=== PATIENT | female | born 1960 | race Caucasian/White ===

== ENCOUNTER 2017-05-02 10:40 | Inpatient (IN) | payer BC ==
[~2017-05-02 10:40] MED LIST: Lidocaine 1%/Sod Bicarbonate in NS 8.4% 1 ML Syringe PRN; Sodium Chloride 0.9% 10 ML Syringe FLUSH PRN
[2017-05-02] MEDS: Lactated Ringers 1,000 ML IV SCH ×2 (11:26→12:45)
[2017-05-02] MEDS ORDERED: Propofol 200 MG/20 ML SDV ONE ×2 (11:53→16:48)
[2017-05-02] MEDS ORDERED: Morphine PF 10 MG/10 ML SDV ONE (12:00)
[2017-05-02] MEDS ORDERED: Midazolam 1 MG/ML 2 ML SDV ONE (12:00)
[2017-05-02] MEDS ORDERED: Lidocaine 1% 4 ML ONE (12:02)
[2017-05-02] MEDS ORDERED: ceFAZolin 1 GM Vial ONE (12:58)
--- NOTE | 2017-05-02 13:09 | PCM.PREANE ---
Preanesthetic Assessment - Anesthesia/Transfusion/Family Hx Anesthesia History: Prior Anesthesia Without Reaction Family History of Anesthesia Reaction: No Transfusion History: No Prior Transfusion(s) - Review of Systems General: No Symptoms Pulmonary: No Symptoms Cardiovascular: Other (HTN- controlled with medications ) Gastrointestinal: No Symptoms Neurological: No Symptoms Other: Reports: Depression - Physical Assessment NPO Status Date: 05/01/17 NPO Status Time: 22:00 O2 Sat by Pulse Oximetry: 96 Respiratory Rate: 16 Vital Signs: Last Vital Signs Temp 36.0 C 05/02/17 10:50 Pulse 67 05/02/17 10:50 Resp 16 05/02/17 10:50 BP 129/80 05/02/17 10:50 Pulse Ox 96 05/02/17 10:50 Height: 1.63 m Weight: 86.183 kg ASA Class: 2 Mental Status: Alert & Oriented x3 Airway Class: Mallampati = 2 Dentition: Reports: Normal Dentition Thyro-Mental Finger Breadths: 3 Mouth Opening Finger Breadths: 3 ROM/Head Extension: Full Lungs: Clear to Auscultation, Normal Respiratory Effort Cardiovascular: Regular Rate, Regular Rhythm - Lab Values: Laboratory Last Values MRSA (PCR) Negative 04/20/17 12:21 Blood Type A POSITIVE 05/02/17 11:25 Gel Antibody Screen Negative 05/02/17 11:25 - Allergies Allergies/Adverse Reactions: Allergies Allergy/AdvReac Type Severity Reaction Status Date / Time rofecoxib [From Vioxx] Allergy Itching Verified 05/02/17 12:13 seasonal Allergy Cough Uncoded 05/02/17 12:13 - Blood Blood Available: No Product(s) Available: None - Anesthesia Plan Pre-Op Medication Ordered: None Beta Fiona: Metoprolol Med Last Dose Date: 05/02/17 Med Last Dose Time: 07:00 - Acknowledgements Anesthesia Type Planned: Spinal (with duramorph) Pt an Appropriate Candidate for the Planned Anesthesia: Yes Alternatives and Risks of Anesthesia Discussed w Pt/Guardian: Yes Pt/Guardian Understands and Agrees with Anesthesia Plan: Yes PreAnesthesia Questionnaire - Past Health History Medical/Surgical History: Denies Medical/Surgical History HEENT History: Reports: Allergic Rhinitis, Impaired Vision Other HEENT History: wears glasses Cardiovascular History: Reports: Hypertension Respiratory History: Reports: None Genitourinary History: Reports: None Other OB/BYN History: hysterectomy Musculoskeletal History: Reports: Arthritis, Fibromyalgia Neurological History: Reports: None Psychiatric History: Reports: Depression, Other (See Below) Other Psychiatric History: insomnia Endocrine/Metabolic History: Reports: None Hematologic History: Reports: None Immunologic History: Reports: None Oncologic (Cancer) History: Reports: None Dermatologic History: Reports: Other (See Below) Other Dermatologic History: acne - Past Surgical History Respiratory Surgical History: Reports: None GI Surgical History: Reports: Appendectomy, Cholecystectomy Female Surgical History: Reports: Hysterectomy, Oophorectomy Endocrine Surgical History: Reports: None Neurological Surgical History: Reports: None Musculoskeletal Surgical History: Reports: Knee Replacement Other Musculoskeletal Surgeries/Procedures:: bilateral knee replacements - SUBSTANCE USE Smoking Status *Q: Unknown Ever Smoked Tobacco Use Within Last Twelve Months: No Second Hand Smoke Exposure: No Days Per Week of Alcohol Use: 0 Recreational Drug Use History: No - HOME MEDS Home Medications: Home Meds Gabapentin [Neurontin] 800 mg PO TID PRN 02/01/15 [History] traMADol [Ultram] 50 mg PO Q6H PRN 02/01/15 [History] Fluticasone Propionate [Flonase] 1 spray NASBOTH Q8HR PRN 06/27/15 [History] Metoprolol Succinate [Toprol XL] 25 mg PO DAILY 06/27/15 [History] Clindamycin Phos/Benzoyl Perox [Clinda-Benzoyl Perox 1-5% Pump] 1 applic TOP BID PRN 04/29/17 [History] Eszopiclone [Lunesta] 3 mg PO BEDTIME 04/29/17 [History] Venlafaxine HCl [Venlafaxine ER] 75 mg PO BEDTIME 04/29/17 [History] Venlafaxine HCl [Venlafaxine ER] 150 mg PO BEDTIME 04/29/17 [History] - CURRENT (IN HOUSE) MEDS Current Meds: Current Medications Lactated Ringer's (Ringers, Lactated) 1,000 mls @ 125 mls/hr IV ASDIRECTED ERINN Stop: 05/02/17 23:00 Last Admin: 05/02/17 12:45 Dose: 125 mls/hr Lidocaine/Sodium Bicarbonate (Buffered Lidocaine 1% In Ns 8.4%) 0.25 ml .XX ONETIME PRN PRN Reason: Prior to IV Start Stop: 05/02/17 18:00 Last Admin: 05/02/17 11:26 Dose: 0.25 ml Sodium Chloride (Saline Flush) 10 ml FLUSH ASDIRECTED PRN PRN Reason: Keep Vein Open Stop: 05/02/17 18:00 Discontinued Medications Acetaminophen (Ofirmev) 100 mls @ 400 mls/hr IV ONETIME ONE Stop: 05/02/17 12:44 Lidocaine HCl (Xylocaine-Mpf 1%) Confirm Administered Dose 4 mls @ as directed .ROUTE .STK-MED ONE Stop: 05/02/17 12:03 Midazolam HCl (Versed 1 Mg/Ml) Confirm Administered Dose 2 mg .ROUTE .STK-MED ONE Stop: 05/02/17 12:01 Morphine Sulfate (Duramorph Pf) Confirm Administered Dose 10 mg .ROUTE .STK-MED ONE Stop: 05/02/17 12:01 Propofol (Diprivan 20 Ml) Confirm Administered Dose 600 mg .ROUTE .STK-MED ONE Stop: 05/02/17 11:54
[2017-05-02] MEDS ORDERED: fentaNYL 100 MCG/2 ML SDV ONE (13:56)
[2017-05-02] MEDS ORDERED: Ketamine 500 mg/10 ML MDV ONE (14:03)
[2017-05-02] MEDS: Bupivacaine 0.25% 30 ML SDV ONE ×2 (15:34→16:45)
[2017-05-02] MEDS: ceFAZolin 1 GM Vial ONE ×2 (15:34→16:36)
[2017-05-02] MEDS: Iodine/Sodium Iodide 2% Tincture 30 ML Bottle ONE ×2 (15:35→16:32)
[2017-05-02] MEDS: Morphine 8 MG, EPINEPHrine 0.3 MG, Cefuroxime 750 MG, Ketorolac 30 MG, Sodium Chloride ... ONE ×10 (15:36→16:46)
[2017-05-02] MEDS ORDERED: Ondansetron 4 MG/2 ML SDV ONE (15:49)
[2017-05-02] MEDS ORDERED: Lactated Ringers 1,000 ML ONE (16:07)
[2017-05-02] MEDS ORDERED: Morphine 2 MG/ML Syringe IVPUSH PRN (16:33)
[2017-05-02] MEDS ORDERED: Bisacodyl 5 MG Tab PO PRN (16:33)
[2017-05-02] MEDS ORDERED: Magnesium Hydroxide 400 MG/5 ML Susp 30 ML Cup PO PRN (16:33)
[2017-05-02] MEDS ORDERED: Ondansetron 4 MG/2 ML SDV IVPUSH PRN (16:33)
[2017-05-02] MEDS ORDERED: Naloxone 0.4 MG/ML SDV IVPUSH PRN (16:33)
[2017-05-02] MEDS ORDERED: diphenhydrAMINE 50 MG/ML SDV IVPUSH PRN (16:33)
[2017-05-02] MEDS ORDERED: Sennosides 8.6 MG Tab PO PRN (16:33)
[2017-05-02] MEDS ORDERED: Docusate Sodium 100 MG Cap PO PRN (16:33)
--- NOTE | 2017-05-02 17:20 | PCM.POSTAN ---
POST ANESTHESIA ASSESSMENT - MENTAL STATUS Mental Status: Alert, Oriented - VITAL SIGNS Pulse Rate: 64 SaO2: 99 Resp Rate: 14 Blood Pressure: 99/57 Temperature: 36.0 C - RESPIRATORY Respiratory Status: Respiratory Rate WNL, Airway Patent, O2 Saturation Stable, Supplemental Oxygen - CARDIOVASCULAR CV Status: Pulse Rate WNL, Blood Pressure Stable - GASTROINTESTINAL GI Status: No Symptoms - PAIN Pain Score: 0 - POST OP HYDRATION Hydration Status: Adequate & Stable
[2017-05-02] MEDS: Acetaminophen/oxyCODONE 325-5 MG Tab PO PRN ×2 (17:55→20:06)
--- NOTE | 2017-05-02 19:25 | CR ---
Pelvis and left hip: AP view of the pelvis was obtained as well as lateral view of the left hip. Comparison: No previous pelvis or left hip exam. Left hip prosthesis is seen. Components are aligned. Underlying bony structures appear intact. Soft tissue air is noted from the surgical procedure. Impression: 1. Recently placed left hip prosthesis. Nothing acute is identified. Diagnostic code #2
--- NOTE | 2017-05-02 19:55 | PCM.CONS ---
H&P History of Present Illness - General Date of Service: 05/02/17 Admit Problem/Dx: Admission Diagnosis/Problem Admission Diagnosis/Problem Arthritis of hip Source of Information: Patient, Family, Old Records, Provider, RN Notes Reviewed History Limitations: Reports: Physical Impairment - History of Present Illness Initial Comments - Free Text/Narative: This is a 56-year-old, white female, with past medical history of HTN, HLD, Hypothyroidism, AR, Hyperhydrosis, OA/DJD, Fatigue, Myalgia and Fibromyalgia who underwent left total hip arthroplasty post operative day zero. Patient is currently somewhat hypotensive with BP of 99/67 mmHg with HR ranging from 48-56 bpm. Currently, her pain is controlled. She denies any acute issues. Hospital Medicine was consulted for postoperative care. - Related Data Allergies/Adverse Reactions: Allergies Allergy/AdvReac Type Severity Reaction Status Date / Time rofecoxib [From Vioxx] Allergy Itching Verified 05/02/17 12:13 seasonal Allergy Cough Uncoded 05/02/17 12:13 Home Medications: Home Meds RX: Gabapentin [Neurontin] 800 mg PO TID PRN 02/01/15 [History] RX: traMADol [Ultram] 50 mg PO Q6H PRN 02/01/15 [History] RX: Fluticasone Propionate [Flonase] 1 spray NASBOTH Q8HR PRN 06/27/15 [History] RX: Metoprolol Succinate [Toprol XL] 25 mg PO DAILY 06/27/15 [History] Clindamycin Phos/Benzoyl Perox [Clinda-Benzoyl Perox 1-5% Pump] 1 applic TOP BID PRN 04/29/17 [History] Eszopiclone [Lunesta] 3 mg PO BEDTIME 04/29/17 [History] RX: Venlafaxine HCl [Venlafaxine ER] 75 mg PO BEDTIME 04/29/17 [History] RX: Venlafaxine HCl [Venlafaxine ER] 150 mg PO BEDTIME 04/29/17 [History] Past Medical History - Past Health History Medical/Surgical History: Denies Medical/Surgical History HEENT History: Reports: Allergic Rhinitis, Impaired Vision Other HEENT History: wears glasses Cardiovascular History: Reports: Hypertension Respiratory History: Reports: None Genitourinary History: Reports: None Other OB/BYN History: hysterectomy Musculoskeletal History: Reports: Arthritis, Fibromyalgia Neurological History: Reports: None Psychiatric History: Reports: Depression, Other (See Below) Other Psychiatric History: insomnia Endocrine/Metabolic History: Reports: None Hematologic History: Reports: None Immunologic History: Reports: None Oncologic (Cancer) History: Reports: None Dermatologic History: Reports: Other (See Below) Other Dermatologic History: acne - Past Surgical History Respiratory Surgical History: Reports: None GI Surgical History: Reports: Appendectomy, Cholecystectomy Female Surgical History: Reports: Hysterectomy, Oophorectomy Endocrine Surgical History: Reports: None Neurological Surgical History: Reports: None Musculoskeletal Surgical History: Reports: Knee Replacement Other Musculoskeletal Surgeries/Procedures:: bilateral knee replacements Social & Family History - Family History Family Medical History: Noncontributory - Tobacco Use Smoking Status *Q: Never Smoker Second Hand Smoke Exposure: No - Caffeine Use Caffeine Use: Reports: Coffee, Soda - Alcohol Use Days Per Week of Alcohol Use: 0 - Recreational Drug Use Recreational Drug Use: No Drug Use in Last 12 Months: No H&P Review of Systems - Review of Systems: Review Of Systems: See Below General: Denies: Fever, Chills, Malaise, Weakness, Fatigue HEENT: Reports: No Symptoms Pulmonary: Denies: Shortness of Breath Cardiovascular: Denies: Chest Pain, Palpitations, Dyspnea on Exertion, Lightheadedness Gastrointestinal: Denies: Abdominal Pain, Nausea, Vomiting Genitourinary: Reports: No Symptoms Musculoskeletal: Reports: No Symptoms Skin: Denies: Cyanosis, Erythema Psychiatric: Denies: Depression, Anxiety, Hallucinations, Suicidal Ideation Neurological: Reports: Difficulty Walking, Gait Disturbance. Denies: Confusion , Weakness Hematologic/Lymphatic: Reports: No Symptoms Immunologic: Reports: No Symptoms Exam - Exam Exam: See Below - Vital Signs Vital Signs: Last Vital Signs Temp 37.0 C 05/02/17 17:55 Pulse 59 L 05/02/17 18:22 Resp 14 05/02/17 18:22 BP 110/57 L 05/02/17 18:22 Pulse Ox 93 L 05/02/17 18:41 Weight: 89.811 kg - Exam General: Alert, Oriented, Cooperative. No: Mild Distress HEENT: Conjunctiva Clear, EACs Clear, EOMI, Hearing Intact, Mucosa Moist & [place] , Nares Patent, Normal Nasal Septum, Posterior Pharynx Clear, Pupils Equal, Pupils Reactive Neck: Supple, Trachea Midline, +2 Carotid Pulse wo Bruit Lungs: Clear to Auscultation, Normal Respiratory Effort Cardiovascular: Regular Rhythm, Bradycardia GI/Abdominal Exam: Normal Bowel Sounds, Soft, Non-Tender, No Organomegaly, No Distention, No Abnormal Bruit, No Mass (Female) Exam: Other (indwelling sanches catheter) Rectal (Female) Exam: Deferred Back Exam: Other (Deferred) Extremities: Normal Inspection, Non-Tender, No Pedal Edema, Normal Capillary Refill. No: Normal Range of Motion Peripheral Pulses: 2+: Posterior Tibial (L), Posterior Tibial (R), Dorsalis Pedis (L), Dorsalis Pedis (R) Skin: Warm, Dry, Intact Neuro Extensive - Mental Status: Oriented x3, Normal Cognition, Memory Intact Neuro Extensive - Motor, Sensory, Reflexes: CN II-XII Intact (limited due to abduction wedge), Abnormal Gait Psychiatric: Alert, Normal Affect, Normal Mood - Patient Data Lab Results Last 24 hrs: Laboratory Results - last 24 hr 05/02/17 Range/Units 11:25 Blood Type A POSITIVE Gel Antibody Screen Negative Consult PN Assessment/Plan POD#: 0 Procedures: Procedures ASSAY OF FERRITIN (04/25/17) ASSAY OF PREALBUMIN (04/25/17) C-REACTIVE PROTEIN (02/01/15) CHEST X-RAY 2VW FRONTAL&LATL (04/25/17) COMPLETE CBC W/AUTO DIFF WBC (04/25/17) COMPREHEN METABOLIC PANEL (04/25/17) CT HEAD/BRAIN W/O DYE (02/01/15) CT MAXILLOFACIAL W/O DYE (02/01/15) DRAIN/INJ JOINT/BURSA W/O US (03/25/17) EMERGENCY DEPT VISIT (02/01/15) GAIT TRAINING THERAPY (08/20/15) HYDRATE IV INFUSION ADD-ON (02/01/15) MANUAL THERAPY 1/> REGIONS (04/15/16) MASSAGE THERAPY (07/23/15) NEUROMUSCULAR REEDUCATION (04/15/16) PROTHROMBIN TIME (04/25/17) PT EVALUATION (03/25/16) ROUTINE VENIPUNCTURE (04/25/17) THER/PROPH/DIAG INJ IV PUSH (02/01/15) THERAPEUTIC EXERCISES (04/15/16) THROMBOPLASTIN TIME PARTIAL (04/25/17) TX/PRO/DX INJ NEW DRUG ADDON (02/01/15) TX/PRO/DX INJ SAME DRUG COPY CENTER ASSOCIATE (02/01/15) VITAMIN D 25 HYDROXY (04/25/17) Problem List Initiated/Reviewed/Updated: Yes Plan: Assessment: Acute: Post-Operative Care State - She is somewhat hypotensive - 500 ml NS x1: 250 ml bolus x1 then 100 cc/hr until done - Continue to monitor for hemodynamic instability S/p Left Total Hip Arthroplasty - Stable - DVT and Pain Management as per primary team Hx/o Chronic Hip Pain S/p Left LESLEE - Pain Management as per primary team Post Operative Hypotension - 500 ml NS x1: 250 ml bolus x1 then 100 cc/hr until done - Monitor urine output per protocol Post-Operative Bradycardia - HR is in the 40s-50s - She is asymptomatic - Hold BB for now Chronic: HTN HLD Hypothyroidism Allergic Rhinitis Hyperhydrosis OA/DJD Fatigue Myalgia Fibromyalgia Plan: She looks clinically stable Routine AM labs Continue home meds PT/OT consult IS q2 awake Additional orders as above Thank you for the opportunity to participate in the management of this patient Requesting Provider: Dr. Shaver Date Consult Requested: 05/02/17 Reason for Consult: Post-Operative Care Patient History Reviewed: Yes Admission H&P Reviewed: Yes Consult Result/Summary: Clinically Stable
[2017-05-02] MEDS ORDERED: Sodium Chloride 0.9% 500 ML IV SCH (20:45)
[2017-05-02] MEDS ORDERED: Gabapentin 600 MG Tab PO PRN (21:53)
[2017-05-02] MEDS ORDERED: ceFAZolin 2 GM in Sodium Chloride 0.9% 100 ML IV SCH (22:00)
[2017-05-02] MEDS ORDERED: Gabapentin 100 MG Cap PO PRN (22:35)
[2017-05-02] MEDS: Famotidine 20 MG Tab PO SCH (22:51)
[2017-05-02] MEDS ORDERED: LUNESTA PO SCH (23:10)
[2017-05-02] MEDS ORDERED: LUNESTA 3 MG PO ONE (23:30)
[2017-05-03] MEDS ORDERED: Sodium Chloride 0.9% 500 ML IV ONE (00:12)
[2017-05-03] MEDS ORDERED: Sodium Chloride 0.9% 1,000 ML IV SCH (00:15)
[2017-05-03] MEDS: Acetaminophen/oxyCODONE 325-5 MG Tab PO PRN ×5 (00:24→20:50)
[2017-05-03] MEDS: Famotidine 20 MG Tab PO SCH ×2 (04:25→16:53)
[2017-05-03] MEDS ORDERED: SODIUM CHLORIDE 0.9% IV SCH (05:00)
[2017-05-03] MEDS ORDERED: ceFAZolin 2 GM in Sodium Chloride 0.9% 50 ML IV SCH ×2 (05:00→05:15)
[2017-05-03] MEDS ORDERED: CEFAZOLIN IV SCH (05:00)
[2017-05-03] MEDS: ceFAZolin 2 GM in Premix Bag 1 BAG IV SCH ×2 (05:47→13:26)
[2017-05-03] MEDS: Ketorolac 15 MG/ML SDV IVPUSH PRN ×2 (08:12→20:48)
[2017-05-03] MEDS: Aspirin 325 MG Tab.EC PO SCH ×2 (08:12→20:49)
[2017-05-03] MEDS: Venlafaxine 75 MG Cap.ER PO SCH ×2 (09:39→20:49)
--- NOTE | 2017-05-03 11:25 | PCM48HPAN ---
Post Anesthesia Note - EVALUATION WITHIN 48HRS OF ANESTHETIC Vital Signs in Normal Range: Yes Patient Participated in Evaluation: Yes Respiratory Function Stable: Yes Airway Patent: Yes Cardiovascular Function Stable: Yes Hydration Status Stable: Yes Pain Control Satisfactory: Yes Nausea and Vomiting Control Satisfactory: Yes Mental Status Recovered: Yes - COMMENTS/OBSERVATIONS Free Text/Narrative:: Pt reports doing quite well. pain well-controlled. spinal has completely resolved. Pt expressed that she is quite pleased with her anesthesia care as she was quite concerned with post-op pain before she had surgery, and her experience has been great. no n/v, no f/c, no headache. up to restroom without problems. ambulating, taking p.o.
--- NOTE | 2017-05-03 14:43 | PCM.PN ---
- General Info Date of Service: 05/03/17 Admission Dx/Problem (Free Text): Admission Diagnosis/Problem Admission Diagnosis/Problem Arthritis of hip POD #[address] Shaver Pain under good control this morning, much better. No nausea Voiding without problems Up with PT this am, did well with ambulation Functional Status: Reports: Pain Controlled, Tolerating Diet, Ambulating, Urinating. Denies: New Symptoms - Review of Systems General: Reports: No Symptoms HEENT: Reports: No Symptoms Pulmonary: Reports: No Symptoms Cardiovascular: Reports: No Symptoms Gastrointestinal: Reports: No Symptoms Genitourinary: Reports: No Symptoms Musculoskeletal: Reports: Leg Pain Skin: Reports: No Symptoms Neurological: Reports: No Symptoms Psychiatric: Reports: No Symptoms - Patient Data Vitals - Most Recent: Last Vital Signs Temp 98.6 F 05/03/17 11:45 Pulse 66 05/03/17 11:45 Resp 14 05/03/17 11:45 BP 104/58 L 05/03/17 11:45 Pulse Ox 93 L 05/03/17 11:45 Weight - Most Recent: 202 lb 8 oz I&O - Last 24 Hours: Intake & Output 05/02/17 05/03/17 05/03/17 22:59 06:59 14:59 Intake Total 0 3124 100 Output Total 800 Balance 0 2324 100 Lab Results Last 24 Hours: Laboratory Results - last 24 hr 05/03/17 05/03/17 Range/Units 04:40 04:40 WBC 4.72 (3.98-10.04) K/mm3 RBC 2.93 L (3.98-5.22) M/mm3 Hgb 9.4 L (11.2-15.7) gm/L Hct 29.9 L (34.1-44.9) % MCV 102.0 H (79.4-94.8) fl MCH 32.1 (25.6-32.2) pg MCHC 31.4 L (32.2-35.5) g/dl RDW Std Deviation 49.9 H (36.4-46.3) fL Plt Count 282 (182-369) K/mm3 MPV 8.9 L (9.4-12.3) fl Neut % (Auto) 65.0 (34.0-71.1) % Lymph % (Auto) 24.4 (19.3-51.7) % [place] % (Auto) 9.1 (4.7-12.5) % Eos % (Auto) 1.1 (0.7-5.8) Baso % (Auto) 0.2 (0.1-1.2) % Neut # (Auto) 3.07 (1.56-6.13) K/mm3 Lymph # (Auto) 1.15 L (1.18-3.74) K/mm3 [place] # (Auto) 0.43 H (0.24-0.36) K/mm3 Eos # (Auto) 0.05 (0.04-0.36) K/mm3 Baso # (Auto) 0.01 (0.01-0.08) K/mm3 Sodium 138 (136-145) mEq/L Potassium 4.4 (3.5-5.1) mEq/L Chloride 104 (98-107) mEq/L Carbon Dioxide 30 (21-32) mEq/L Anion Gap 8.4 (5-15) BUN 14 (7-18) mg/dL Creatinine 1.0 (0.55-1.02) mg/dL Est Cr Clr Drug Dosing 54.24 mL/min Estimated GFR (MDRD) 57 (>60) mL/min BUN/Creatinine Ratio 14.0 (14-18) Glucose 127 H (74-106) mg/dL Calcium 8.0 L (8.5-10.1) mg/dL Total Bilirubin 0.7 (0.2-1.0) mg/dL AST 618 H (15-37) U/L ALT 409 H (14-59) U/L Alkaline Phosphatase 137 H (46-116) U/L Total Protein 5.3 L (6.4-8.2) g/dl Albumin 2.8 L (3.4-5.0) g/dl Globulin 2.5 gm/dL Albumin/Globulin Ratio 1.1 (1-2) Med Orders - Current: Current Medications Aspirin (Ecotrin) 325 mg PO BID ERINN Last Admin: 05/03/17 08:12 Dose: 325 mg Bisacodyl (Dulcolax) 10 mg PO DAILY PRN PRN Reason: Constipation Diphenhydramine HCl (Benadryl) 25 mg IVPUSH Q4H PRN PRN Reason: Nausea Docusate Sodium (Colace) 100 mg PO BID PRN PRN Reason: Constipation Famotidine (Pepcid) 20 mg PO Q12H [facility] Last Admin: 05/03/17 04:25 Dose: 20 mg Flunisolide (Nasalide Nasal [place]) 0 ml NASBOTH Q12HR PRN PRN Reason: Rhinitis Gabapentin (Neurontin) 600 mg PO TID PRN PRN Reason: Pain Last Admin: 05/03/17 08:13 Dose: 600 mg Gabapentin (Neurontin) 200 mg PO TID PRN PRN Reason: PAIN Last Admin: 05/03/17 08:13 Dose: 200 mg Sodium Chloride (Normal Saline) 500 mls @ 999 mls/hr IV .BOLUS [facility] Last Admin: 05/02/17 21:18 Dose: 999 mls/hr Ketorolac Tromethamine (Toradol) 15 mg IVPUSH Q8H PRN PRN Reason: Pain Last Admin: 05/03/17 08:12 Dose: 15 mg Magnesium Hydroxide (Milk Of Magnesia) 30 ml PO BID PRN PRN Reason: Constipation Morphine Sulfate (Morphine) 2 mg IVPUSH Q2H PRN PRN Reason: Breakthrough Pain Lunesta Pt Own 3 mg PO BEDTIME [facility] Last Admin: 05/03/17 00:16 Dose: Not Given Ondansetron HCl (Zofran) 4 mg IVPUSH Q6H PRN PRN Reason: Nausea/Vomiting Oxycodone/Acetaminophen (Percocet 325-5 Mg) 2 tab PO Q4H PRN PRN Reason: Pain Last Admin: 05/03/17 09:39 Dose: 2 tab Senna (Senna) 8.6 mg PO BID PRN PRN Reason: Constipation Venlafaxine HCl (Effexor Xr) 225 mg PO BEDTIME [facility] Last Admin: 05/03/17 09:39 Dose: 225 mg Discontinued Medications Bupivacaine HCl (Marcaine 0.25%) Confirm Administered Dose 30 ml .ROUTE .STK- MED ONE Stop: 05/02/17 13:00 Last Admin: 05/02/17 16:45 Dose: 30 ml Cefazolin Sodium (Ancef) Confirm Administered Dose 2 gm .ROUTE .STK-MED ONE Stop: 05/02/17 12:59 Cefazolin Sodium (Ancef) Confirm Administered Dose 2 gm .ROUTE .STK-MED ONE Stop: 05/02/17 15:02 Last Admin: 05/02/17 16:36 Dose: 2 gm Morphine Sulfate 8 mg/Epinephrine HCl 0.3 mg/Cefuroxime Sodium 750 mg/Ketorolac Tromethamine 30 mg/Sodium Chloride 17 ml 0 mg .XX ONETIME ONE Stop: 05/02/17 15:31 Last Admin: 05/02/17 16:46 Dose: 788.3 mg Fentanyl (Sublimaze) Confirm Administered Dose 100 mcg .ROUTE .STK-MED ONE Stop: 05/02/17 13:57 Lactated Ringer's (Ringers, Lactated) 1,000 mls @ 125 mls/hr IV ASDIRECTED [facility] Stop: 05/02/17 23:00 Last Admin: 05/02/17 12:45 Dose: 125 mls/hr Acetaminophen (Ofirmev) 100 mls @ 400 mls/hr IV ONETIME ONE Stop: 05/02/17 12:44 Last Admin: 05/02/17 13:33 Dose: 400 mls/hr Lidocaine HCl (Xylocaine-Mpf 1%) Confirm Administered Dose 4 mls @ as directed .ROUTE .STK-MED ONE Stop: 05/02/17 12:03 Lactated Ringer's (Ringers, Lactated) Confirm Administered Dose 1,000 mls @ as directed .ROUTE .STK-MED ONE Stop: 05/02/17 16:08 Cefazolin Sodium 2 gm/ Sodium (Chloride) 100 mls @ 100 mls/hr IV Q8H [facility] Stop: 05/03/17 14:59 Last Admin: 05/02/17 22:51 Dose: 100 mls/hr Sodium Chloride (Normal Saline) 500 mls @ 999 mls/hr IV .BOLUS ONE Stop: 05/03/17 00:42 Last Admin: 05/03/17 00:39 Dose: 999 mls/hr Sodium Chloride (Normal Saline) 1,000 mls @ 100 mls/hr IV ASDIRECTED [facility] Last Admin: 05/03/17 07:53 Dose: 100 mls/hr Cefazolin Sodium/Dextrose 2 gm (/ Sodium Chloride) 100 mls @ 100 mls/hr IV Q8H [facility] Stop: 05/03/17 14:59 Cefazolin Sodium/Dextrose 2 gm (/ Sodium Chloride) 100 mls @ 100 mls/hr IV Q8H [facility] Stop: 05/03/17 13:59 Last Admin: 05/03/17 05:41 Dose: Not Given Cefazolin Sodium/Dextrose 2 gm (/ Sodium Chloride) 50 mls @ 50 mls/hr IV Q8H [facility] Stop: 05/03/17 13:59 Last Admin: 05/03/17 05:47 Dose: Not Given Cefazolin Sodium/Dextrose 2 gm (/ Premix) 50 mls @ 50 mls/hr IV Q8H [facility] Stop: 05/03/17 13:59 Last Admin: 05/03/17 13:26 Dose: 50 mls/hr Iodine (Iodine 2% Mild Tincture) Confirm Administered Dose 30 ml .ROUTE .STK- MED ONE Stop: 05/02/17 13:00 Last Admin: 05/02/17 16:32 Dose: 18 ml Ketamine HCl (Ketalar) Confirm Administered Dose 500 mg .ROUTE .STK-MED ONE Stop: 05/02/17 14:04 Lidocaine/Sodium Bicarbonate (Buffered Lidocaine 1% In Ns 8.4%) 0.25 ml .XX ONETIME PRN PRN Reason: Prior to IV Start Stop: 05/02/17 18:00 Last Admin: 05/02/17 11:26 Dose: 0.25 ml Midazolam HCl (Versed 1 Mg/Ml) Confirm Administered Dose 2 mg .ROUTE .STK-MED ONE Stop: 05/02/17 12:01 Morphine Sulfate (Duramorph Pf) Confirm Administered Dose 10 mg .ROUTE .STK-MED ONE Stop: 05/02/17 12:01 Naloxone HCl (Narcan) 0.1 mg IVPUSH Q5M PRN PRN Reason: Oversedation Stop: 05/02/17 16:49 Lunesta 3mg Own (Med) 1 each PO ONETIME ONE Stop: 05/02/17 23:31 Last Admin: 05/02/17 23:35 Dose: 1 each Ondansetron HCl (Zofran) Confirm Administered Dose 4 mg .ROUTE .STK-MED ONE Stop: 05/02/17 15:50 Propofol (Diprivan 20 Ml) Confirm Administered Dose 600 mg .ROUTE .STK-MED ONE Stop: 05/02/17 11:54 Propofol (Diprivan 20 Ml) Confirm Administered Dose 200 mg .ROUTE .STK-MED ONE Stop: 05/02/17 16:49 Sodium Chloride (Saline Flush) 10 ml FLUSH ASDIRECTED PRN PRN Reason: Keep Vein Open Stop: 05/02/17 18:00 Tranexamic Acid (Cyklokapron) Confirm Administered Dose 1,000 mg .ROUTE .STK- MED ONE Stop: 05/02/17 12:59 Last Admin: 05/02/17 16:47 Dose: 1,000 mg Venlafaxine HCl (Effexor Xr) 225 mg PO BEDTIME ERINN Venlafaxine HCl (Effexor Xr) 75 mg PO BEDTIME ERINN Zolpidem Tartrate (Ambien) 10 mg PO BEDTIME ERINN - Exam Quality Assessment: DVT Prophylaxis General: Alert, Oriented, Cooperative, No Acute Distress HEENT: Pupils Equal, Pupils Reactive, EOMI, Mucous Membr. Moist/[place] Neck: Supple Lungs: Clear to Auscultation, Normal Respiratory Effort Cardiovascular: Regular Rate, Regular Rhythm GI/Abdominal Exam: Normal Bowel Sounds, Soft, Non-Tender (Female) Exam: Deferred Extremities: Other (Teds, SCD's, ice to lt hip, CMS + and = distally) Peripheral Pulses: 2+: Dorsalis Pedis (L), Dorsalis Pedis (R) Neurological: No New Focal Deficit Psy/Mental Status: Alert, Normal Affect, Normal Mood - Problem List & Annotations (1) S/P total hip arthroplasty SNOMED Code(s): 576764491515, 686193954274 Code(s): Z96.649 - PRESENCE OF UNSPECIFIED ARTIFICIAL HIP JOINT Status: Acute Priority: High Current Visit: Yes Qualifiers: Laterality: left Qualified Code(s): Z96.642 - Presence of left artificial hip joint (2) Osteoarthritis SNOMED Code(s): 378730485 Code(s): M19.90 - UNSPECIFIED OSTEOARTHRITIS, UNSPECIFIED SITE Status: Acute Priority: High Current Visit: Yes Qualifiers: Osteoarthritis location: hip Osteoarthritis type: primary Laterality: left Qualified Code(s): M16.12 - Unilateral primary osteoarthritis, left hip (3) HTN (hypertension) SNOMED Code(s): 34302914 Code(s): I10 - ESSENTIAL (PRIMARY) HYPERTENSION Status: Acute Priority: Medium Current Visit: No Qualifiers: Hypertension type: unspecified Qualified Code(s): I10 - Essential (primary ) hypertension (4) Depression SNOMED Code(s): 76516814 Code(s): F32.9 - MAJOR DEPRESSIVE DISORDER, SINGLE EPISODE, UNSPECIFIED Status: Chronic Priority: Medium Current Visit: No Qualifiers: Depression Type: unspecified Qualified Code(s): F32.9 - Major depressive disorder, single episode, unspecified (5) Fibromyalgia SNOMED Code(s): 927818342 Code(s): M79.7 - FIBROMYALGIA Status: Chronic Priority: Medium Current Visit: No - Problem List Review Problem List Initiated/Reviewed/Updated: Yes - My Orders Last 24 Hours: My Active Orders 05/04/17 05:11 CBC WITH AUTO DIFF [HEME] AM COMPREHENSIVE METABOLIC PN,CMP [CHEM] AM - Plan Plan:: I/P: POD #1- Lt LESLEE with Dr. Shaver -Pain management and DVT prophylax per Ortho -PT/OT -RT/IS -Hgb 9.4 LFT's are elevated today---suspect related to anesthesia; recommend repeat LFT' s in the next week to follow; follow up with PCP. Chronic: Cont home meds HTN- stable Depression Fibromyalgia Other: GI prophylax CM/SW for assist with DC planning- patient plans DC home with family care. IF patient ok/safe for dc home with family today from PT standpoint, she is stable for DC from Hospitalist standpoint today. Patient is Full Code status.
[2017-05-03 17:04] VITALS: BP 119/68
[2017-05-03] MEDS ORDERED: Zolpidem 10 MG Tab PO SCH (21:00)
[2017-05-03] MEDS ORDERED: Venlafaxine 75 MG Cap.ER PO SCH ×2 (21:00)
--- NOTE | 2017-05-05 22:52 | PCM.OPNOTE ---
- General Post-Op/Procedure Note Date of Surgery/Procedure: 05/02/17 Operative Procedure(s): left total hip arthroplasty Pre Op Diagnosis: left hip osteoarthrosis Post-Op Diagnosis: Same Anesthesia Technique: Local, MAC, Spinal Primary Surgeon: Alierza Shaver Anesthesia Provider: Isela Tavarez Congressional Representative: Ernestina Gilmore EBL in mLs: 500 Complications: None Condition: Good
--- NOTE | 2017-05-05 23:51 | OR ---
DATE OF OPERATION: 05/02/2017 SURGEON: Alireza Shaver MD OPERATION PERFORMED: Left total hip arthroplasty. PREOPERATIVE DIAGNOSIS: Left hip osteoarthrosis. POSTOPERATIVE DIAGNOSIS: Left hip osteoarthrosis. ANESTHESIA: Local MAC with spinal. ANESTHESIA PROVIDER: Cody Vick. MAP COLORER: Ernestina Gilmore LPN. ESTIMATED BLOOD LOSS: 500 mL. COMPLICATIONS: None. CONDITION: Stable. IMPLANTS: 1. [place] size 50 titanium acetabular cup. 2. [place] size 36 +5 mm Biolox ceramic femoral head .. 3. A 36 mm size D polyethylene liner. 4. Size 3 Accolate II stem. DESCRIPTION OF PROCEDURE: The patient was identified in the preoperative holding area. Proper site was marked and identified by the surgeon. The patient was taken back to the operating theater where after adequate anesthesia, the patient was placed in a right lateral decubitus position. Axillary roll was placed and pegs were placed and all bony prominences and pegs were well padded. The patient's gluteal fold was parallel to the floor. At this time, the left hip was then sterilely prepped and draped in the usual sterile fashion. OR time-out was performed. The patient received 2 g IV Ancef. A standard incision was made centered over the greater tuberosity. This was taken down to the IT band and gluteal fascia, which were incised along the incisional length. At this time, a Charnley retractor was placed and short external rotators were identified. A capsulotomy was then performed from piriformis down to the short external rotators, and the hip was then dislocated. Neck cut guide was then placed and neck cut was completed. Attention was turned to the acetabulum. Anterior and posterior acetabular retractors were placed. The pulvinar along with anterior and posterior labrum were then removed. Under direct visualization, starting with a 42 reamer, I was able to ream up to a 50 for a 50-mm cup. A 50-mm Tritanium acetabular cup was then impacted into place in roughly 20-30 degrees anteversion and roughly 40-50 degrees of abduction. It was found to have adequate fixation at this time. Size D polyethylene for a 36 head was then impacted into place within the bone flat liner. At this time, attention was turned to the femur. The femoral elevator was placed. Box chisel was used out laterally. Starting awl was placed down the canal. Starting with the 0 broach, I was able to broach up to a size 3, which was found to be rotationally and vertically stable. With a 127 degree neck, we trialed a standard head, it was found to be a minor amount short at this time, +5 mm was trialed and was found to have adequate leg length jain and it was stable throughout range of motion. A bone hook was used to dislocate the hip. At this time, a size 3 Accolate stem was then impacted into place with a 36 mm +5 mm head. At this time, the hip was reduced. 1 L dilute Betadine solution was irrigated through the hip along with 3 L pulse lavage irrigation with Ancef. Periarticular injection was then completed along with Marcaine subcutaneously. Two #5 Ethibond sutures were used for closure of the short external rotators. A #2 barbed suture was used for closure of the IT band and gluteal fascia, 2-0 Vicryl was used subcutaneously and Prineo was used for the skin. The patient had a sterile soft dressing applied and was sent to the PACU in stable condition. MELISSA /[id number]
--- NOTE | 2017-05-09 10:58 | PCM.DCSUM1 ---
Discharge Summary - Hospital Course Brief History: Ora is a 56 yo female who underwent left LESLEE with Dr. Shaver on . The procedure was completed under spinal anesthesia. The pt tolerated the procedure well and was admitted to the Medical-Surgical Unit. Medical management was provided by the Hospitalist service. The pt's Hospital course was uneventful. The pt's Hgb on POD#1 was 9.4. On POD#1, 325mg BID was initiated for VTE prophylaxis. SCDs and TEDs were also ordered. A Mepilex dressing was placed at the incision site at the time of surgery and remained clean and dry. The pt participated in P.T. and O.T. and progressed well. She followed the LESLEE precautions. The pt was allowed to WBAT. On POD#1, the pt was deemed appropriate to discharge to home with her family. - Discharge Data Discharge Date: 05/03/17 Discharge Disposition: Home, Self-Care 01 Condition: Good - Patient Summary/Data Operative Procedure(s) Performed: left total hip arthroplasty Consults: Consultations 05/02/17 16:37 Consult to Case Management [CONS] Routine Consult to Physician [CONS] Routine OT Evaluation and Treatment [CONS] Routine 05/02/17 16:38 PT Evaluation and Treatment [CONS] Routine - Patient Instructions Diet: Usual Diet as Tolerated Activity: Apply Ice, Full Weight Bearing, No Strenuous Activities Driving: Do Not Drive Driving, Other: until off pain medication Showering/Bathing: May Shower Showering/Bathing, Other: keep dressing intact until follow up Wound/Incision Care: Keep Operative Site/Wound Site Clean and Dry, Do NOT Change Dressing Notify Provider of: Fever, Increased Pain, Swelling and Redness, Drainage, Nausea and/or Vomiting Other/Special Instructions: continue to take aspirin 325mg twice daily for 4 weeks to help prevent blood clot, call clinic with any concerns [phone] - Discharge Plan Prescriptions/Med Rec: Acetaminophen/oxyCODONE [Percocet 325-5 MG] 2 tab PO Q4H PRN #60 tablet PRN Reason: Pain Aspirin [Ecotrin] 325 mg PO BID #84 tab.ec Home Medications: Home Meds Gabapentin [Neurontin] 800 mg PO TID PRN 02/01/15 [History] Fluticasone Propionate [Flonase] 1 spray NASBOTH Q8HR PRN 06/27/15 [History] Metoprolol Succinate [Toprol XL] 25 mg PO DAILY 06/27/15 [History] Clindamycin Phos/Benzoyl Perox [Clinda-Benzoyl Perox 1-5% Pump] 1 applic TOP BID PRN 04/29/17 [History] Eszopiclone [Lunesta] 3 mg PO BEDTIME 04/29/17 [History] Venlafaxine HCl [Venlafaxine ER] 75 mg PO BEDTIME 04/29/17 [History] Venlafaxine HCl [Venlafaxine ER] 150 mg PO BEDTIME 04/29/17 [History] Acetaminophen/oxyCODONE [Percocet 325-5 MG] 2 tab PO Q4H PRN #60 tablet [Rx] Aspirin [Ecotrin] 325 mg PO BID #84 tab.ec 05/03/17 [Rx] Referrals: Alireza Shaver MD [Physician] - Hortencia Gleason NP [Primary Care Provider] - (Please call and schedule follow up appointment within one week of discharge for recheck of liver function tests.) Yady De PA-C [Physician Glass Inspector] - 05/10/17 11:45 am (May 10 at 11: 45 and also an appt on May 17 at 11:15.) - Patient Data Vitals - Most Recent: Last Vital Signs Temp 97.3 F 05/03/17 17:02 Pulse 58 L 05/03/17 17:02 Resp 12 05/03/17 17:02 BP 119/68 05/03/17 17:02 Pulse Ox 98 05/03/17 17:02 Weight - Most Recent: 202 lb 8 oz Med Orders - Current: Current Medications Discontinued Medications Aspirin (Ecotrin) 325 mg PO BID [facility] Last Admin: 05/03/17 20:49 Dose: 325 mg Bisacodyl (Dulcolax) 10 mg PO DAILY PRN PRN Reason: Constipation Bupivacaine HCl (Marcaine 0.25%) Confirm Administered Dose 30 ml .ROUTE .STK- MED ONE Stop: 05/02/17 13:00 Last Admin: 05/02/17 16:45 Dose: 30 ml Cefazolin Sodium (Ancef) Confirm Administered Dose 2 gm .ROUTE .STK-MED ONE Stop: 05/02/17 12:59 Cefazolin Sodium (Ancef) Confirm Administered Dose 2 gm .ROUTE .STK-MED ONE Stop: 05/02/17 15:02 Last Admin: 05/02/17 16:36 Dose: 2 gm Morphine Sulfate 8 mg/Epinephrine HCl 0.3 mg/Cefuroxime Sodium 750 mg/Ketorolac Tromethamine 30 mg/Sodium Chloride 17 ml 0 mg .XX ONETIME ONE Stop: 05/02/17 15:31 Last Admin: 05/02/17 16:46 Dose: 788.3 mg Diphenhydramine HCl (Benadryl) 25 mg IVPUSH Q4H PRN PRN Reason: Nausea Docusate Sodium (Colace) 100 mg PO BID PRN PRN Reason: Constipation Famotidine (Pepcid) 20 mg PO Q12H [facility] Last Admin: 05/03/17 16:53 Dose: 20 mg Fentanyl (Sublimaze) Confirm Administered Dose 100 mcg .ROUTE .STK-MED ONE Stop: 05/02/17 13:57 Flunisolide (Nasalide Nasal [place]) 0 ml NASBOTH Q12HR PRN PRN Reason: Rhinitis Gabapentin (Neurontin) 600 mg PO TID PRN PRN Reason: Pain Last Admin: 05/03/17 08:13 Dose: 600 mg Gabapentin (Neurontin) 200 mg PO TID PRN PRN Reason: PAIN Last Admin: 05/03/17 08:13 Dose: 200 mg Lactated Ringer's (Ringers, Lactated) 1,000 mls @ 125 mls/hr IV ASDIRECTED ERINN Stop: 05/02/17 23:00 Last Admin: 05/02/17 12:45 Dose: 125 mls/hr Acetaminophen (Ofirmev) 100 mls @ 400 mls/hr IV ONETIME ONE Stop: 05/02/17 12:44 Last Admin: 05/02/17 13:33 Dose: 400 mls/hr Lidocaine HCl (Xylocaine-Mpf 1%) Confirm Administered Dose 4 mls @ as directed .ROUTE .STK-MED ONE Stop: 05/02/17 12:03 Lactated Ringer's (Ringers, Lactated) Confirm Administered Dose 1,000 mls @ as directed .ROUTE .STK-MED ONE Stop: 05/02/17 16:08 Cefazolin Sodium 2 gm/ Sodium (Chloride) 100 mls @ 100 mls/hr IV Q8H [facility] Stop: 05/03/17 14:59 Last Admin: 05/02/17 22:51 Dose: 100 mls/hr Sodium Chloride (Normal Saline) 500 mls @ 999 mls/hr IV .BOLUS [facility] Last Admin: 05/02/17 21:18 Dose: 999 mls/hr Sodium Chloride (Normal Saline) 500 mls @ 999 mls/hr IV .BOLUS ONE Stop: 05/03/17 00:42 Last Admin: 05/03/17 00:39 Dose: 999 mls/hr Sodium Chloride (Normal Saline) 1,000 mls @ 100 mls/hr IV ASDIRECTED [facility] Last Admin: 05/03/17 07:53 Dose: 100 mls/hr Cefazolin Sodium/Dextrose 2 gm (/ Sodium Chloride) 100 mls @ 100 mls/hr IV Q8H [facility] Stop: 05/03/17 14:59 Cefazolin Sodium/Dextrose 2 gm (/ Sodium Chloride) 100 mls @ 100 mls/hr IV Q8H [facility] Stop: 05/03/17 13:59 Last Admin: 05/03/17 05:41 Dose: Not Given Cefazolin Sodium/Dextrose 2 gm (/ Sodium Chloride) 50 mls @ 50 mls/hr IV Q8H [facility] Stop: 05/03/17 13:59 Last Admin: 05/03/17 05:47 Dose: Not Given Cefazolin Sodium/Dextrose 2 gm (/ Premix) 50 mls @ 50 mls/hr IV Q8H [facility] Stop: 05/03/17 13:59 Last Admin: 05/03/17 13:26 Dose: 50 mls/hr Iodine (Iodine 2% Mild Tincture) Confirm Administered Dose 30 ml .ROUTE .STK- MED ONE Stop: 05/02/17 13:00 Last Admin: 05/02/17 16:32 Dose: 18 ml Ketamine HCl (Ketalar) Confirm Administered Dose 500 mg .ROUTE .STK-MED ONE Stop: 05/02/17 14:04 Ketorolac Tromethamine (Toradol) 15 mg IVPUSH Q8H PRN PRN Reason: Pain Last Admin: 05/03/17 20:48 Dose: 15 mg Lidocaine/Sodium Bicarbonate (Buffered Lidocaine 1% In Ns 8.4%) 0.25 ml .XX ONETIME PRN PRN Reason: Prior to IV Start Stop: 05/02/17 18:00 Last Admin: 05/02/17 11:26 Dose: 0.25 ml Magnesium Hydroxide (Milk Of Magnesia) 30 ml PO BID PRN PRN Reason: Constipation Midazolam HCl (Versed 1 Mg/Ml) Confirm Administered Dose 2 mg .ROUTE .STK-MED ONE Stop: 05/02/17 12:01 Morphine Sulfate (Duramorph Pf) Confirm Administered Dose 10 mg .ROUTE .STK-MED ONE Stop: 05/02/17 12:01 Morphine Sulfate (Morphine) 2 mg IVPUSH Q2H PRN PRN Reason: Breakthrough Pain Naloxone HCl (Narcan) 0.1 mg IVPUSH Q5M PRN PRN Reason: Oversedation Stop: 05/02/17 16:49 Lunesta 3mg Own (Med) 1 each PO ONETIME ONE Stop: 05/02/17 23:31 Last Admin: 05/02/17 23:35 Dose: 1 each Lunesta Pt Own 3 mg PO BEDTIME ERINN Last Admin: 05/03/17 00:16 Dose: Not Given Ondansetron HCl (Zofran) Confirm Administered Dose 4 mg .ROUTE .STK-MED ONE Stop: 05/02/17 15:50 Ondansetron HCl (Zofran) 4 mg IVPUSH Q6H PRN PRN Reason: Nausea/Vomiting Oxycodone/Acetaminophen (Percocet 325-5 Mg) 2 tab PO Q4H PRN PRN Reason: Pain Last Admin: 05/03/17 20:50 Dose: 2 tab Propofol (Diprivan 20 Ml) Confirm Administered Dose 600 mg .ROUTE .STK-MED ONE Stop: 05/02/17 11:54 Propofol (Diprivan 20 Ml) Confirm Administered Dose 200 mg .ROUTE .STK-MED ONE Stop: 05/02/17 16:49 Senna (Senna) 8.6 mg PO BID PRN PRN Reason: Constipation Sodium Chloride (Saline Flush) 10 ml FLUSH ASDIRECTED PRN PRN Reason: Keep Vein Open Stop: 05/02/17 18:00 Tranexamic Acid (Cyklokapron) Confirm Administered Dose 1,000 mg .ROUTE .STK- MED ONE Stop: 05/02/17 12:59 Last Admin: 05/02/17 16:47 Dose: 1,000 mg Venlafaxine HCl (Effexor Xr) 225 mg PO BEDTIME ERINN Venlafaxine HCl (Effexor Xr) 75 mg PO BEDTIME ERINN Venlafaxine HCl (Effexor Xr) 225 mg PO BEDTIME ERINN Last Admin: 05/03/17 20:49 Dose: 225 mg Zolpidem Tartrate (Ambien) 10 mg PO BEDTIME ERINN *Q Meaningful Use (DIS) - VTE *Q VTE Criteria *Q: - Stroke *Q Stroke Criteria *Q: - AMI *Q AMI Criteria *Q:
== END 2017-05-03 23:10 | disposition home or self-care (01) | DRG 301 ==
LOC: JD.MS 10:40
PROVIDERS: ADMIT Orthopaedic Surgery; ATTEND Orthopaedic Surgery
PROC: 0SRB019 Replacement of Left Hip Joint with Metal Synthetic Substitute, Cemented, Open Approach (ICD-10-PCS; principal; 2017-05-02)
DX: M16.12 Unilateral primary osteoarthritis, left hip (principal); I95.81 Postprocedural hypotension; I97.89 Other postprocedural complications and disorders of the circulatory system, not elsewhere classified; I10 Essential (primary) hypertension; F32.9 Major depressive disorder, single episode, unspecified; M79.7 Fibromyalgia; E03.9 Hypothyroidism, unspecified; M79.1 Myalgia; J30.2 Other seasonal allergic rhinitis; Z88.8 Allergy status to other drugs, medicaments and biological substances; Z79.899 Other long term (current) drug therapy; Z96.653 Presence of artificial knee joint, bilateral; R61 Generalized hyperhidrosis; R53.83 Other fatigue
CPT/HCPCS: 01214; 36415; 73501-26-LT; 73501-LT; 80053; 85025; 86850; 86900; 86901; 87641; 94760; 94762; 97110-GP; 97116-GP; 97161-GP; 97166-GO; 97535-GO; A9270-GY; C1776; J0171; J0690; J0697; J1885; J2250; J2270; J2405; J2704; J3010; J3490; J7030; J7040; J7120

== ENCOUNTER 2017-05-12 18:22 | Emergency (ER) | payer BC ==
[2017-05-12 18:41] VITALS: BP 136/78
--- NOTE | 2017-05-12 19:12 | EDM.PDOC ---
ED HPI GENERAL MEDICAL PROBLEM - General Chief Complaint: Lower Extremity Injury/Pain Stated Complaint: LT LEG SWELLING Time Seen by Provider: 05/12/17 19:07 Source of Information: Reports: Patient History Limitations: Reports: No Limitations - History of Present Illness INITIAL COMMENTS - FREE TEXT/NARRATIVE: 56 year old female presents to the ED for evaluation of Lt leg swelling and pain. She is 10 days post op Lt total hip replacement . Lt leg has become more swollen and painfull over the last 3 days.No paraesthesias. First day of physio was today. She has no associated shortness of breath or dyspnea or pleuritic chest pain. Past history of DVT or pulmonary embolism. Surgical wound was looked at 2 days ago by Brigette alberto and it looked good new dressing was placed. The leg was not notably swollen at that time. She is on aspirin only post total hip replacement. Onset: Gradual (Over the last 2-3 days) Onset Date: 05/10/17 Duration: Day(s): Location: Reports: Lower Extremity, Left (From calf to groin) Quality: Reports: Ache, Pressure (Mild), Throbbing, Other (Obvious swelling.) Severity: Moderate Improves with: Reports: None Worsens with: Reports: None Context: Reports: Other (Left total hip replacement May [address] Shaver.). Denies: Activity, Exercise, Lifting, Sick Contact, Trauma Associated Symptoms: Reports: No Other Symptoms Treatments WATER SANDER: Reports: Aspirin, Other (see below) (Percocet when necessary) Left Lower Leg Pain Score (Numeric/FACES): 3 - Related Data Allergies Allergy/AdvReac Type Severity Reaction Status Date / Time rofecoxib [From Vioxx] Allergy Itching Verified 05/12/17 18:35 seasonal Allergy Cough Uncoded 05/12/17 18:35 Home Meds: Home Meds Gabapentin [Neurontin] 800 mg PO TID PRN 02/01/15 [History] Fluticasone Propionate [Flonase] 1 spray NASBOTH Q8HR PRN 06/27/15 [History] Metoprolol Succinate [Toprol XL] 25 mg PO DAILY 06/27/15 [History] Clindamycin Phos/Benzoyl Perox [Clinda-Benzoyl Perox 1-5% Pump] 1 applic TOP BID PRN 04/29/17 [History] Eszopiclone [Lunesta] 3 mg PO BEDTIME 04/29/17 [History] Venlafaxine HCl [Venlafaxine ER] 75 mg PO BEDTIME 04/29/17 [History] Venlafaxine HCl [Venlafaxine ER] 150 mg PO BEDTIME 04/29/17 [History] Acetaminophen/oxyCODONE [Percocet 325-5 MG] 2 tab PO Q4H PRN #60 tablet [Rx] Aspirin [Ecotrin] 325 mg PO BID #84 tab.ec 05/03/17 [Rx] Rivaroxaban [Xarelto] 20 mg PO DAILY #30 tablet 05/12/17 [Rx] Past Medical History - Past Health History Medical/Surgical History: Denies Medical/Surgical History HEENT History: Reports: Allergic Rhinitis, Impaired Vision Other HEENT History: wears glasses Cardiovascular History: Reports: Hypertension Respiratory History: Reports: None Genitourinary History: Reports: None Other OB/BYN History: hysterectomy Musculoskeletal History: Reports: Arthritis, Fibromyalgia Neurological History: Reports: None Psychiatric History: Reports: Depression, Other (See Below) Other Psychiatric History: insomnia Endocrine/Metabolic History: Reports: None Hematologic History: Reports: None Immunologic History: Reports: None Oncologic (Cancer) History: Reports: None Dermatologic History: Reports: Other (See Below) Other Dermatologic History: acne - Past Surgical History Respiratory Surgical History: Reports: None GI Surgical History: Reports: Appendectomy, Cholecystectomy Female Surgical History: Reports: Hysterectomy, Oophorectomy Endocrine Surgical History: Reports: None Neurological Surgical History: Reports: None Musculoskeletal Surgical History: Reports: Knee Replacement Other Musculoskeletal Surgeries/Procedures:: bilateral knee replacements Social & Family History - Family History Family Medical History: Noncontributory - Tobacco Use Smoking Status *Q: Never Smoker Second Hand Smoke Exposure: No - Caffeine Use Caffeine Use: Reports: Coffee, Soda - Alcohol Use Days Per Week of Alcohol Use: 0 - Recreational Drug Use Recreational Drug Use: No Drug Use in Last 12 Months: No - Living Situation & Occupation Living situation: Reports: Occupation: Unemployed Review of Systems - Review of Systems Review Of Systems: See Below Constitutional: Reports: No Symptoms Eyes: Reports: No Symptoms Ears: Reports: No Symptoms Nose: Reports: No Symptoms Mouth/Throat: Reports: No Symptoms Respiratory: Reports: No Symptoms. Denies: Shortness of Breath, Pleuritic Chest Pain Cardiovascular: Reports: No Symptoms GI/Abdominal: Reports: No Symptoms Genitourinary: Reports: No Symptoms Musculoskeletal: Reports: Other (Mild to moderate pain at surgical site left lateral hip.) Skin: Reports: Other (Left lower leg has become very swollen and taut and shiny) Neurological: Reports: No Symptoms Psychiatric: Reports: No Symptoms ED EXAM, GENERAL - Physical Exam Exam: See Below Exam Limited By: No Limitations General Appearance: Alert, WD/WN, No Apparent Distress Eye Exam: Bilateral Eye: Normal Inspection Throat/Mouth: Normal Inspection, Normal Lips, Normal Oropharynx Head: Atraumatic, Normocephalic Neck: Normal Inspection, Supple, Non-Tender, Full Range of Motion. No: Lymphadenopathy (L), Lymphadenopathy (R) Respiratory/Chest: No Respiratory Distress, Lungs Clear, Normal Breath Sounds, No Accessory Muscle Use, Other (O2 sats are 98% on room air) Cardiovascular: Normal Peripheral Pulses (Dorsalis pedis pulses normal left foot ), Regular Rate, Rhythm, No Edema (Tachycardia at rest 1 20/m), Tachycardia Peripheral Pulses: 2+: Posterior Tibial (L), Posterior Tibial (R), Dorsalis Pedis (L), Dorsalis Pedis (R) GI/Abdominal: Normal Bowel Sounds, Soft, Non-Tender, No Organomegaly, No Abnormal Bruit, No Mass, Pelvis Stable Extremities: Other (The left leg is grossly swollen below the knee. She's had previous total knee replacement on the left side with well-healed skin midline. Below this the leg is quite edematous and skin is quite shiny and taut. There is still fluctuation or movement of the posterior calf and no pain could be elicited until it was midway down the mid posterior calf. 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 but no showed any worse on the left as compared to the right.) Neurological: Alert, Oriented, CN II-XII Intact, Normal Cognition Psychiatric: Normal Affect, Normal Mood Skin Exam: Warm, Dry, Intact, Normal Color, No Rash Course - Vital Signs Last Recorded V/S: Last Vital Signs Temp 36.4 C 05/12/17 18:35 Pulse 120 H 05/12/17 18:35 Resp 16 05/12/17 18:35 BP 136/78 05/12/17 18:35 Pulse Ox 98 05/12/17 18:35 - Orders/Labs/Meds Orders: Active Orders 24 hr Category Date Time Status VL Duplex Lwr Ext Veins Ltd Lt [US] Stat Exams 05/12/17 19:07 Taken - Radiology Interpretation Free Text/Narrative:: 56-year-old female presents to the ED 10 days post left total hip replacement. The left leg has become more swollen and painful uptake in the calf area and below the knee over the last 2 days. Pain does radiate up towards her surgical wound in her left lateral hip. The left lateral hip wound shows no signs of infection. Left lower extremity is markedly moderately edematous as is the dorsal aspect of the foot. Skin is shiny and somewhat taut in the lower or distal one third of the tib-fib on the left side. No pain in the popliteal fossa therefore possible debility of DVT exists. She is on aspirin as a preventive agent. Plan Doppler ultrasound left leg to rule out DVT. - Re-Assessments/Exams Free Text/Narrative Re-Assessment/Exam: 05/12/17 21:02 ultrasound of the left lower extremity was negative for any DVT. The patient herself is quite apprehensive about not being on anti-thrombotic medication as she has been with her knees in the past. She requests that I write a prescription for xarelto as she is so anxious about potentially developing a DVT. I therefore will write a prescription for Xarelto 20 mg once a day for one month. She will be following up with Antoine Chavez/Dr. Sky as previously planned. She will elevate the leg is much as possible to reduce the edema. Note the patient does have multiple varicosities of both lower extremities Departure - Departure Time of Disposition: 21:03 Disposition: Home, Self-Care 01 Condition: Fair Clinical Impression: Leg edema, left - Discharge Information Prescriptions: Rivaroxaban [Xarelto] 20 mg PO DAILY #30 tablet Instructions: Edema, [id number] Referrals: Hortencia Gleason, TEXT[employer] DESIGNER [Primary Care Provider] - Forms: ED Department Discharge - My Orders Last 24 Hours: My Active Orders 05/12/17 19:07 Duplex Lwr Ext Veins Ltd Lt [US] Stat - Assessment/Plan Last 24 Hours: My Active Orders 05/12/17 19:07 Duplex Lwr Ext Veins Ltd Lt [US] Stat
--- NOTE | 2017-05-13 08:15 | US ---
Left lower extremity deep venous ultrasound: Duplex and color flow imaging was obtained of the left common femoral, proximal greater saphenous, superficial femoral, popliteal, posterior tibial and peroneal veins. Right common femoral vein was also evaluated. Mild subcutaneous edema seen within the medial left calf. Deep veins show normal phasic flow, augmentation and compression. Impression: 1. Subcutaneous edema within the left calf. 2. No findings of deep venous thrombosis seen within the left lower extremity or within the right common femoral vein. Diagnostic code #2 Agree with preliminary report issued by [email or web address] ([facility] preliminary report dictated on 05/12/17, 9:53 PM Central Time)
== END 2017-05-12 21:13 | disposition home or self-care (01) ==
LOC: JD.ED 18:22
DX: R60.0 Localized edema (principal); I10 Essential (primary) hypertension; Z90.710 Acquired absence of both cervix and uterus; F32.9 Major depressive disorder, single episode, unspecified; Z91.048 Other nonmedicinal substance allergy status; Z79.82 Long term (current) use of aspirin; Z79.899 Other long term (current) drug therapy; Z90.49 Acquired absence of other specified parts of digestive tract; Z90.721 Acquired absence of ovaries, unilateral; Z96.653 Presence of artificial knee joint, bilateral
CPT/HCPCS: 93971-26-LT; 93971-LT; 99283; 99284-25

== ENCOUNTER 2017-12-21 13:35 | Emergency (ER) | payer BC, MEDICARE ==
[2017-12-21 13:54] VITALS: BP 137/86
[2017-12-21] MEDS: HYDROmorphone 0.5 MG/0.5 ML SYRINGE IM ONE (14:42)
[2017-12-21] MEDS: Diazepam 5 MG Tab PO ONE (14:42)
[2017-12-21] MEDS: Ketorolac 60 MG/2 ML SDV IM ONE (14:43)
--- NOTE | 2017-12-21 15:09 | EDM.PDOC ---
ED HPI GENERAL MEDICAL PROBLEM - General Chief Complaint: Lower Extremity Injury/Pain Stated Complaint: HIP PAIN Time Seen by Provider: 12/21/17 14:20 Source of Information: Reports: Patient History Limitations: Reports: No Limitations - History of Present Illness INITIAL COMMENTS - FREE TEXT/NARRATIVE: 57-year-old female presents for evaluation and treatment of right-sided hip pain. Patient reports last week and a half she has had intermittent right hip pain. She saw Dr. Uriarte last week for this. She was placed on steroids and few Percocet for pain. She states today she woke up and she had severe pain, worse at right hip and groin. She denies any fevers, erythema, nausea or vomiting. No numbness or tingling. Reports that the pain is deep within the right hip and radiates into her right groin and into her anterior right leg. She reports no weakness to the right leg and she has good range of motion of the right leg. patient had a left hip replacement last year. Done by Dr. Shaver. States that she was supposed to see him again a few days ago but due to miscommunication she was not scheduled. She states that she was told the past that her right hip is good. in addition to a left hip replacement patient has rheumatoid arthritis and fibromyalgia. She is scheduled to see content producer in January in [place]. Right Hip Pain Score (Numeric/FACES): 10 - Related Data Allergies Allergy/AdvReac Type Severity Reaction Status Date / Time rofecoxib [From Vioxx] Allergy Itching Verified 05/12/17 18:35 seasonal Allergy Cough Uncoded 05/12/17 18:35 Home Meds: Home Meds Gabapentin [Neurontin] 800 mg PO TID PRN 02/01/15 [History] Fluticasone Propionate [Flonase] 1 spray NASBOTH Q8HR PRN 06/27/15 [History] Metoprolol Succinate [Toprol XL] 25 mg PO DAILY 06/27/15 [History] Clindamycin Phos/Benzoyl Perox [Clinda-Benzoyl Perox 1-5% Pump] 1 applic TOP BID PRN 04/29/17 [History] Eszopiclone [Lunesta] 3 mg PO BEDTIME 04/29/17 [History] Venlafaxine HCl [Venlafaxine ER] 75 mg PO BEDTIME 04/29/17 [History] Venlafaxine HCl [Venlafaxine ER] 150 mg PO BEDTIME 04/29/17 [History] Acetaminophen/oxyCODONE [Percocet 325-5 MG] 2 tab PO Q4H PRN #60 tablet [Rx] Aspirin [Ecotrin] 325 mg PO BID #84 tab.ec 05/03/17 [Rx] Rivaroxaban [Xarelto] 20 mg PO DAILY #30 tablet 05/12/17 [Rx] Acetaminophen/oxyCODONE [Percocet 325-5 MG] 1 tab PO Q4HR PRN #20 tab 12/21/17 [ Rx] LORazepam [Ativan] 1 mg PO ASDIRECTED #1 tablet 12/21/17 [Rx] Orphenadrine [Norflex] 100 mg PO BID PRN #20 tab.er 12/21/17 [Rx] Past Medical History - Past Health History Medical/Surgical History: Denies Medical/Surgical History HEENT History: Reports: Allergic Rhinitis, Impaired Vision Other HEENT History: wears glasses Cardiovascular History: Reports: Hypertension Respiratory History: Reports: None Genitourinary History: Reports: None Other OB/BYN History: hysterectomy Musculoskeletal History: Reports: Arthritis, Fibromyalgia Neurological History: Reports: None Psychiatric History: Reports: Depression, Other (See Below) Other Psychiatric History: insomnia Endocrine/Metabolic History: Reports: None Hematologic History: Reports: None Immunologic History: Reports: None Oncologic (Cancer) History: Reports: None Dermatologic History: Reports: Other (See Below) Other Dermatologic History: acne - Past Surgical History Respiratory Surgical History: Reports: None GI Surgical History: Reports: Appendectomy, Cholecystectomy Female Surgical History: Reports: Hysterectomy, Oophorectomy Endocrine Surgical History: Reports: None Neurological Surgical History: Reports: None Musculoskeletal Surgical History: Reports: Knee Replacement Other Musculoskeletal Surgeries/Procedures:: bilateral knee replacements Social & Family History - Family History Family Medical History: Noncontributory - Tobacco Use Smoking Status *Q: Never Smoker Second Hand Smoke Exposure: No - Caffeine Use Caffeine Use: Reports: Coffee - Alcohol Use Days Per Week of Alcohol Use: 0 - Recreational Drug Use Recreational Drug Use: No Drug Use in Last 12 Months: No - Living Situation & Occupation Living situation: Reports: Occupation: Unemployed Review of Systems - Review of Systems Review Of Systems: See Below Constitutional: Denies: Fever GI/Abdominal: Reports: Other (no stool incontinance). Denies: Nausea, Vomiting Genitourinary: Denies: Incontinence Musculoskeletal: Reports: Back Pain (low back), Other (right hip pain; no decreased ROM to the right leg) Skin: Denies: Erythema Neurological: Denies: Numbness, Tingling ED EXAM, GENERAL - Physical Exam Exam: See Below Exam Limited By: No Limitations General Appearance: Alert, WD/WN, Moderate Distress, Obese, Other (patient is pacing around the room in moderate distress) Respiratory/Chest: No Respiratory Distress, Lungs Clear, Normal Breath Sounds Cardiovascular: Normal Peripheral Pulses, Regular Rate, Rhythm, No Murmur Back Exam: Normal Inspection, Paraspinal Tenderness (L5/sacrum, mild). No: Vertebral Tenderness Extremities: Normal Inspection, Normal Range of Motion (right hip has full ROM, no pain produced with flexion, extension, adduction, abduction or rotation of the right hip) Neurological: Alert, Oriented, Normal Cognition, Other (negative straight leg raise bilterally) Psychiatric: Normal Affect, Normal Mood Skin Exam: Warm, Dry, Normal Color Course - Vital Signs Last Recorded V/S: Last Vital Signs Temp 36.2 C 12/21/17 13:51 Pulse 67 12/21/17 13:51 Resp 16 12/21/17 13:51 BP 137/86 12/21/17 13:51 Pulse Ox 97 12/21/17 13:51 - Orders/Labs/Meds Orders: Active Orders 24 hr Category Date Time Status Peripheral IV Care [RC] . DIRECTED Care 12/21/17 15:26 Active Peripheral IV Insertion Adult [OM.PC] Routine Oth 12/21/17 15:26 Ordered Meds: Medications Discontinued Medications Generic Name Dose Route Start Last Admin Trade Name Freq PRN Reason Stop Dose Admin Diazepam 5 mg 12/21/17 14:30 12/21/17 14:42 Valium. PO 12/21/17 14:31 5 mg ONETIME ONE Administration Hydromorphone HCl 0.5 mg 12/21/17 14:30 12/21/17 14:42 Dilaudid IM 12/21/17 14:31 0.5 mg ONETIME ONE Administration Hydromorphone HCl 0.5 mg 12/21/17 15:26 12/21/17 15:37 Dilaudid IVPUSH 12/21/17 15:27 0.5 mg ONETIME ONE Administration Hydromorphone HCl 0.5 mg 12/21/17 16:15 12/21/17 16:29 Dilaudid IVPUSH 12/21/17 16:16 0.5 mg ONETIME ONE Administration Ketorolac Tromethamine 60 mg 12/21/17 14:30 12/21/17 14:43 Toradol IM 12/21/17 14:31 60 mg ONETIME ONE Administration Methylprednisolone Sodium Succinate 125 mg 12/21/17 16:15 12/21/17 16:30 Solu-Medrol IVPUSH 12/21/17 16:16 125 mg ONETIME ONE Administration Sodium Chloride 10 ml 12/21/17 15:26 12/21/17 15:37 Saline Flush FLUSH 10 ml ASDIRECTED PRN Administration Keep Vein Open - Radiology Interpretation Free Text/Narrative:: Pelvis and right hip: AP view of the pelvis was obtained as well as AP and frog- leg lateral views of the right hip. Comparison: Previous pelvis and left hip exam of 05/02/17. Left hip prosthesis is seen. Components are aligned. Joint space within the right hip is preserved. Mild degenerative change is noted within the lumbar spine. No fracture or other abnormality is appreciated. Impression: 1. Mild degenerative change within the lumbar spine. 2. Left hip prosthesis which appears unremarkable. 3. No additional abnormality is identified on AP pelvis or on two-view right hip exam. Lumbar spine: AP, lateral and coned-down lateral views centered to the lumbosacral junction were obtained. Comparison: No prior lumbar spine exam. Moderate disc space narrowing is noted at T11-T12. Mild posterior disc space narrowing noted at T12-L1. Moderate disc space narrowing is seen diffusely at L1-L2. Moderate to severe disc space narrowing is noted at L2-L3. Severe disc space narrowing is noted at L3-L4. Mild disc space narrowing is noted at L4-L5. Spondylolisthesis is noted at L3-L4 approximately 6 mm. Spondylolisthesis is noted at L4-L5 by approximately 6 mm. Minimal retrolisthesis noted at L1-L2 and L2-L3. Minimal scattered endplate osteophytes are seen. Pedicles are intact. Visualized transverse and spinous processes are intact. Surgical clips are seen from previous cholecystectomy. Impression: 1. Diffuse degenerative change as noted above. - Re-Assessments/Exams Free Text/Narrative Re-Assessment/Exam: 12/21/17 15:39 Checked on the patient. She reports no change in pain with the IM Dilaudid, Toradol and Valium. Plan will be to put an IV in for better pain control. Will give her some Dilaudid. I feel that her pain is coming from her back as opposed to her hip. Plan will be to schedule her an outpatient MRI. She has not had any signs of cauda equina such as loss of bowel or bladder or saddle anesthesia. 12/21/17 16:47 Patient is feeling better at this time. We will discharge her home. She has an MRI scheduled for December 27. Discharge instructions as documented. Departure - Departure Time of Disposition: 16:47 Disposition: Home, Self-Care 01 Clinical Impression: Hip pain, right, Low back pain - Discharge Information Prescriptions: Acetaminophen/oxyCODONE [Percocet 325-5 MG] 1 tab PO Q4HR PRN #20 tab PRN Reason: Pain LORazepam [Ativan] 1 mg PO ASDIRECTED #1 tablet Orphenadrine [Norflex] 100 mg PO BID PRN #20 tab.er PRN Reason: Pain (Severe 7-10) Instructions: Hip Pain, Back Pain, Adult, [id number] Referrals: Hortencia Gleason, B[employer] ST[employer]ER [Primary Care Provider] - Forms: ED Department Discharge Additional Instructions: Your given medication the ER the temperature ability to drive and operate machinery. Do not drive or operate machinery within 12 hours of taking prescription narcotic pain medication. An MRI of your lumbar spine has been scheduled for you on December 26 at 2 PM[address]rive from the [facility] entrance and check in with the commercial front load driver there. Take the Ativan by mouth about 30-45 minutes prior to the MRI. Norflex 1 tab twice a day as needed for muscle spasm. [id number] Tylenol or Motrin as needed for pain relief. For pain not relieved by Tylenol or Motrin you may take Percocet 1 or 2 tabs every 4-6 hours as needed for severe pain. Percocet is habit-forming, I recommend you take as few these as needed to control your pain. Follow-up with your primary care provider next week for a recheck of your symptoms and MRI results. You will likely need a referral to neurosurgery. Dr. Escobar at [facility] in [place] does spinal surgery, pending her MRI results.. Recommend ice or heat for additional pain relief. Rest but do not be completely inactive as inactivity can make your symptoms worse. Please return to the ER if your symptoms change or worsen. - My Orders Last 24 Hours: My Active Orders 12/21/17 15:26 Peripheral IV Care [RC] . DIRECTED Peripheral IV Insertion Adult [OM.PC] Routine - Assessment/Plan Last 24 Hours: My Active Orders 12/21/17 15:26 Peripheral IV Care [RC] . DIRECTED Peripheral IV Insertion Adult [OM.PC] Routine
[2017-12-21] MEDS: Sodium Chloride 0.9% 10 ML Syringe FLUSH PRN (15:37)
[2017-12-21] MEDS: HYDROmorphone 0.5 MG/0.5 ML SYRINGE IVPUSH ONE ×2 (15:37→16:29)
--- NOTE | 2017-12-21 15:37 | CR ---
Lumbar spine: AP, lateral and coned-down lateral views centered to the lumbosacral junction were obtained. Comparison: No prior lumbar spine exam. Moderate disc space narrowing is noted at T11-T12. Mild posterior disc space narrowing noted at T12-L1. Moderate disc space narrowing is seen diffusely at L1-L2. Moderate to severe disc space narrowing is noted at L2-L3. Severe disc space narrowing is noted at L3-L4. Mild disc space narrowing is noted at L4-L5. Spondylolisthesis is noted at L3-L4 approximately 6 mm. Spondylolisthesis is noted at L4-L5 by approximately 6 mm. Minimal retrolisthesis noted at L1-L2 and L2-L3. Minimal scattered endplate osteophytes are seen. Pedicles are intact. Visualized transverse and spinous processes are intact. Surgical clips are seen from previous cholecystectomy. Impression: 1. Diffuse degenerative change as noted above. Diagnostic code #3
--- NOTE | 2017-12-21 15:37 | CR ---
Pelvis and right hip: AP view of the pelvis was obtained as well as AP and frog-leg lateral views of the right hip. Comparison: Previous pelvis and left hip exam of 05/02/17. Left hip prosthesis is seen. Components are aligned. Joint space within the right hip is preserved. Mild degenerative change is noted within the lumbar spine. No fracture or other abnormality is appreciated. Impression: 1. Mild degenerative change within the lumbar spine. 2. Left hip prosthesis which appears unremarkable. 3. No additional abnormality is identified on AP pelvis or on two-view right hip exam. Diagnostic code #2
[2017-12-21] MEDS: methylPREDNISolone Sodium Succinate 125 MG/2 ML SDV IVPUSH ONE (16:30)
== END 2017-12-21 18:07 | disposition home or self-care (01) ==
LOC: JD.ED 13:35
DX: M25.551 Pain in right hip (principal); M54.5 Low back pain; I10 Essential (primary) hypertension; Z88.8 Allergy status to other drugs, medicaments and biological substances; Z79.82 Long term (current) use of aspirin; Z91.048 Other nonmedicinal substance allergy status; Z90.49 Acquired absence of other specified parts of digestive tract; Z79.899 Other long term (current) drug therapy
CPT/HCPCS: 72100; 73502; 96372; 96374; 96375; 96376; 99284; A9270; J1170; J1885; J2930; J7050

== ENCOUNTER 2025-02-17 22:05 | Emergency (ER) | payer BC ==
[2025-02-17 22:34] VITALS: PULSE 54
[2025-02-17 22:47] LABS: BASOPHILS ABSOLUTE AUTO 0.1 K/mm3 (0.0-0.2); BASOPHILS PERCENT AUTO 0.7 % (0.0-1.0); HEMATOCRIT 44.2 % (37.0-47.0); HEMOGLOBIN 14.3 gm/dl (12.0-16.0); IMMATURE GRAN ABSOLUTE AUTO 0.04 K/mm3 (0.00-0.05); IMMATURE GRAN PERCENT AUTO 0.6 % (0.0-0.4); LYMPHOCYTES ABSOLUTE AUTO 3.7 K/mm3 (1.0-4.8); LYMPHOCYTES PERCENT AUTO 56.1 % (24.0-44.0); MEAN CORPUSCULAR HEMOGLOBIN 31.2 pg (28.0-32.0); MEAN CORPUSCULAR HGB CONC 32.4 g/dl (32.0-36.0); MEAN CORPUSCULAR VOLUME 96.3 fl (83.0-99.0); MEAN PLATELET VOLUME 8.9 fl (9.4-12.3); MONOCYTES ABSOLUTE AUTO 0.8 K/mm3 (0.0-0.8); MONOCYTES PERCENT AUTO 12.6 % (0.0-8.0); PLATELET COUNT,PLT 356 K/mm3 (150-400); RED BLOOD CELL COUNT 4.59 M/mm3 (4.10-5.30); WHITE BLOOD CELL COUNT,WBC 6.67 K/mm3 (3.9-11.3)
[2025-02-17] MEDS: Acetaminophen 325 MG Tab PO ONE (22:52)
[2025-02-17] MEDS: Ondansetron 4 MG/2 ML SDV IVPUSH ONE (22:52)
[2025-02-17] MEDS: Sodium Chloride 0.9% 500 ML IV ONE (22:52)
[2025-02-17] MEDS: Sodium Chloride 0.9% 10 ML Syringe FLUSH PRN (22:52)
[2025-02-17 23:00] LABS: A/G RATIO 0.9 (1-2); ALBUMIN 3.3 g/dl (3.4-5.0); BILIRUBIN TOTAL 0.3 mg/dL (0.2-1.0); CALCIUM 8.8 mg/dL (8.5-10.1); CREATININE 1.4 mg/dL (0.55-1.02); EST CRCL DRUG DOSING (CG) 36.53 mL/min; PROTEIN TOTAL,TP 6.9 g/dl (6.4-8.2)
[2025-02-17] MEDS: diphenhydrAMINE 50 MG/ML SDV IVPUSH ONE (23:43)
[2025-02-18 00:37] LABS: APPEARANCE,URINE CLEAR (Clear); BILIRUBIN,URINE NEGATIVE (Negative); COLOR,URINE LIGHT YELLOW (Yellow); GLUCOSE,URINE NEGATIVE (Negative); KETONES,URINE NEGATIVE (Negative); LEUKOCYTE ESTERASE,URINE 2+ (Negative); NITRITE,URINE NEGATIVE (Negative); OCCULT BLOOD,URINE NEGATIVE (Negative); PH,URINE 6.5 (5.0-8.0); PROTEIN,URINE TRACE (Negative); UROBILINOGEN,URINE 0.2 (0.2-1.0)
[2025-02-18 00:43] LABS: BACTERIA,URINE MODERATE /hpf (FEW); MUCUS,URINE NOT SEEN /hpf (FEW); RBC,URINE 0-5 /hpf (0-5); WBC,URINE 30-40 /hpf (0-5)
[2025-02-18] MEDS: cefTRIAXone 1 GM Vial IVPUSH ONE (01:06)
[2025-02-18 01:22] VITALS: BP 189/97
== END 2025-02-18 01:21 | disposition home or self-care (01) ==
LOC: JD.ED 22:05
DX: R51.9 Headache, unspecified (principal); R05.9 Cough, unspecified; R09.81 Nasal congestion; R82.90 Unspecified abnormal findings in urine; R79.89 Other specified abnormal findings of blood chemistry; I10 Essential (primary) hypertension; M19.90 Unspecified osteoarthritis, unspecified site; Z90.49 Acquired absence of other specified parts of digestive tract; Z90.710 Acquired absence of both cervix and uterus; Z88.8 Allergy status to other drugs, medicaments and biological substances; Z91.048 Other nonmedicinal substance allergy status; Z79.82 Long term (current) use of aspirin; Z79.01 Long term (current) use of anticoagulants; Z79.899 Other long term (current) drug therapy
CPT/HCPCS: 36415; 70450; 71045; 80053; 81001; 85025; 87086; 93005; 96361; 96374; 96375; 99284; A9270; J0696; J1200; J2405; J7030